=== PATIENT | male | born 1970 | race Caucasian/White ===

== ENCOUNTER 2017-08-29 09:03 | Day surgery (SDC) | payer BC ==
[2017-08-29 09:47] VITALS: BMI 41.5
[2017-08-29] MEDS ORDERED: BUPIVACAINE HCL/PF 2.5 MG/ML - 30 ML VIAL IJ ONE (11:11)
[2017-08-29] MEDS ORDERED: MIDAZOLAM HCL 2 MG/2 ML SINGLE DOSE VIAL ONE (11:19)
[2017-08-29] MEDS ORDERED: ONDANSETRON 4 MG/2 ML VIAL ONE (11:37)
[2017-08-29] MEDS ORDERED: DEXAMETHASONE SOD PHOSPHATE 4 MG/1 ML VIAL ONE (11:37)
[2017-08-29] MEDS ORDERED: KETOROLAC TROMETHAMINE 30 MG/1 ML VIAL ONE (11:37)
[2017-08-29] MEDS ORDERED: ceFAZolin SODIUM 1 GM VIAL ONE (11:39)
[2017-08-29] MEDS ORDERED: BUPIVACAINE HCL/PF 0.25% (2.5MG/ML) 10 ML VIAL IJ ONE (12:15)
[2017-08-29] MEDS ORDERED: ONDANSETRON 4 MG/2 ML VIAL IVPUSH PRN (12:23)
[2017-08-29] MEDS ORDERED: oxyCODONE HCL 5 MG TABLET PO PRN (12:23)
[2017-08-29] MEDS ORDERED: LACTATED RINGERS SOLUTION 1,000 ML IV SCH (12:30)
[2017-08-29 13:47] VITALS: TEMP 97.9
[2017-08-29 15:14] VITALS: PULSE 62
[2017-08-29 15:22] VITALS: BP 116/70
--- NOTE | 2017-08-31 19:50 | OP ---
DATE OF OPERATION: 08/29/2017 LOCATION: [facility]. SURGEON: Brennan Mcdermott MD PHYTOCHEMISTRY PROFESSOR: KEE Abarca PREOPERATIVE DIAGNOSES: 1. Left knee medial and lateral meniscal tears. 2. Left knee cartilage injury. 3. Left knee synovitis. POSTOPERATIVE DIAGNOSES: 1. Left knee medial and lateral meniscal tears. 2. Left knee cartilage injury. 3. Left knee synovitis. PROCEDURE: 1. Left knee arthroscopy, partial meniscectomy of medial and lateral meniscus. 2. Left knee arthroscopy with chondroplasty and abrasion-plasty. 3. Left knee arthroscopy with synovectomy. FINDINGS: 1. Medial meniscus body and posterior horn tear. 2. Lateral meniscus posterior horn tear and anterior horn tear. 3. Synovitis, patellofemoral and medial and lateral notch area. 4. Central grade 2 to 3 cartilage injury, medial femoral condyle and tibial plateau, with small area of grade 4 changes. 5. ACL and PCL intact. 6. Minor grade 1 to 2 cartilage injury, lateral joint line. 7. Central grade 2 to 4 cartilage injury, patella and patellofemoral trochlea. PROCEDURE: Informed consent was obtained. The patient came to the operating room, where the lower extremity was prepped and draped in a sterile fashion. A tourniquet was placed on the upper thigh, but not inflated. Using standard arthroscopic technique, a lateral incision and portal was made to allow for introduction of the camera into the suprapatellar bursa. This was then taken to the medial joint line, where under direct visualization, a medial incision and portal was made. Excessive synovium noted in the medial, lateral and patellofemoral and notch area was removed by an upbiter, shaver and Bovie cautery. This was found to bring in inflammatory tissue into the joint surface, a source of pain and dysfunction. Probing of the medial and lateral meniscus found tears, as described in the findings. These were removed with the upbiter and shaver and taken back to a stable rim. Grade 2 to 3 degenerative changes were treated with a chondroplasty, removing all flaking surfaces with low-setting Bovie along the periphery to prevent further flaking. Grade 4 changes, as noted, were treated with an abrasoplasty, creating a bleeding surface at the bone/cartilage interface. Aggressive debridement with shaver/roberta created bleeding surface. Mirco fracture also done when indicated in findings All areas of the knee were once again reexamined. The knee was then drained and a single suture was placed in all portals. A sterile dressing was placed and the patient was transferred to the recovery room without complication. BRENNAN MCDERMOTT M.D. [id number]
--- NOTE | 2017-09-03 09:38 | PATH ---
Surgical Pathology Report Patient Name: MAR YGRACE JHAVERI Med. Rec. #: [id number] /Age/Gender: 1970 (Age: 47) / M Account: [id number] Location: [facility] AMBUL[facility]ORY Taken: 08/29/2017 Received: 08/29/2017 Reported: 09/03/2017 Physicians: Brennan Campuzano M.D. Specimen(s) Received LEFT KNEE SHAVINGS Clinical History Left knee derangement Final Diagnosis KNEE, LEFT, ARTHROSCOPIC SHAVING: FIBROCARTILAGE WITH MYXOID DEGENERATIVE CHANGES, ALONG WITH PORTIONS OF SYNOVIUM AND HYALINE CARTILAGE. Electronically Signed Herve Sheriff M.D. Gross Description Received in formalin, labeled "left knee shavings," is a 4.0 x 4.0 x 0.3 cm. aggregate of rendon-yellow soft tissue fragments. A marketing development representative portion is submitted in one cassette. /09/01/201709/01/2017
== END 2017-08-29 15:00 | disposition home or self-care (01) ==
LOC: FASU 09:03
PROVIDERS: ATTEND Orthopaedic Surgery
PROC: 0SBD4ZZ Excision of Left Knee Joint, Percutaneous Endoscopic Approach (ICD-10-PCS; 2017-08-29)
PROC: 0SBD4ZZ Excision of Left Knee Joint, Percutaneous Endoscopic Approach (ICD-10-PCS; 2017-08-29)
PROC: 0SBD4ZZ Excision of Left Knee Joint, Percutaneous Endoscopic Approach (ICD-10-PCS; principal; 2017-08-29 10:30)
DX: S83.242A Other tear of medial meniscus, current injury, left knee, initial encounter (principal); S83.282A Other tear of lateral meniscus, current injury, left knee, initial encounter; S83.8X2A Sprain of other specified parts of left knee, initial encounter; M65.862 Other synovitis and tenosynovitis, left lower leg; X58.XXXA Exposure to other specified factors, initial encounter; Y93.9 Activity, unspecified; Y92.9 Unspecified place or not applicable
CPT/HCPCS: 94760